=== PATIENT | female | born 1965 | race African-American/Black ===

== ENCOUNTER 2016-08-09 11:13 | Day surgery (SDC) | payer OTHER ==
[2016-08-02 14:19] VITALS: BMI 26.6
--- NOTE | 2016-08-03 08:59 | HP ---
Admitting History and Physical - Primary Care Physician PCP: Abundio Herrera - Admission Chief Complaint: Left breast cancer S/P chemotherapy History of Present Illness: 50 year old postmenapausal female S/P Left breast modified radical mastectomy with reconstrcution 10/2014 for invasive ductal carcinima and DCIS 2 positive nodes out of 12 She underwent chemotherapy with Herceptin and now is here for port removal History Source: Patient Limitations to Obtaining History: No Limitations - Past Medical History Cardiovascular: Yes: Hyperlipdemia ...LMP: 09/30/08 ...: No - Past Surgical History Past Surgical History: Yes: Hysterectomy (2008 due to vaginal bleeding fibroids) , Mastectomy (Left modified radical mastectomy with mainframe systems engineer/ implant and then tram reconstruction/ chemotherapy with herceptin and RT) - Smoking History Smoking history: Never smoked Have you smoked in the past 12 months: No Aproximately how many cigarettes per day: 0 - Alcohol/Substance Use Hx Alcohol Use: Yes (socially) Home Medications - Allergies Allergies/Adverse Reactions: Allergies Allergy/AdvReac Type Severity Reaction Status Date / Time beet Allergy Severe Difficulty Verified 07/16/16 15:50 Breathing oxycodone HCl [From Percocet] Allergy Severe Rash Verified 07/16/16 15:50 soy Allergy Severe Difficulty Verified 07/16/16 15:50 Breathing - Home Medications Home Medications: Ambulatory Orders Epinephrine (Epi-Pen 0.3MG) [Epipen 0.3MG -] 0.3 mg IM ASDIR #2 pens 06/19/15 Ranitidine HCl [Zantac] 150 mg PO DAILY #5 capsule 06/19/15 Tamoxifen Citrate 20 mg PO DAILY 04/01/16 Albuterol Sulfate Inhaler - [Ventolin HFA Inhaler -] 2 inh PO Q4H PRN #1 inh Family Disease History - Family Disease History Other Family History: pat aunt breast ca 50-60's Physical Examination Constitutional: Yes: Well Nourished, No Distress Breast(s): Yes: Other ( good results after left mastectomy and postradiation . Tram left side after complications from implant no evidence of recurrence left tram and right breast is negative some left arm lymphedema which is unchanged) Problem List - Problems (1) Breast cancer, left breast Code(s): C50.912 - MALIGNANT NEOPLASM OF UNSPECIFIED SITE OF LEFT FEMALE BREAST Qualifiers: Breast location: unspecified site of breast Patient gender: female Qualified Code(s): C50.912 - Malignant neoplasm of unspecified site of left female breast Assessment/Plan removal of life port
[2016-08-09] MEDS ORDERED: LACTATED RINGERS SOLUTION 1,000 ML IV SCH (13:15)
[2016-08-09] MEDS ORDERED: LIDOCAINE HCL 1%, 10 MG/ML (50 mL VIAL) IJ ONE (13:28)
[2016-08-09] MEDS ORDERED: ONDANSETRON 4 MG/2 ML VIAL IVPUSH PRN (13:50)
[2016-08-09] MEDS ORDERED: PROMETHAZINE HCL 25 MG/1 ML VIAL IVPUSH PRN (13:50)
[2016-08-09] MEDS ORDERED: KETOROLAC TROMETHAMINE 30 MG/1 ML VIAL IVPUSH PRN (14:07)
[2016-08-09] MEDS ORDERED: DEXTROSE 5%-0.45% SALINE 1,000 ML IV SCH (14:15)
[2016-08-09] MEDS ORDERED: ONDANSETRON 4 MG/2 ML VIAL IVPB PRN (14:23)
[2016-08-09 14:27] VITALS: TEMP 98.2
[2016-08-09 15:27] VITALS: BP 102/58; PULSE 82
--- NOTE | 2016-08-10 08:07 | OP ---
DATE OF OPERATION: 08/09/2016 PREOPERATIVE DIAGNOSIS: Left breast cancer, overlapping, status post left breast mastectomy. PROCEDURE: Right-sided subclavian vein, single-lumen Port-A-Cath removal. ANESTHESIA: Local with IV sedation. SURGEON: Zeinab Herrera MD [employer] SPECIAL AGENT: SOLANGE Akbar COMPLICATIONS: None. INDICATION: Briefly, the patient is a 50-year-old G4, P4, postmenopausal female from [place], who was diagnosed with a left breast cancer and underwent a left breast modified radical mastectomy back in October 2014 and had an financial assistance advisor placed. She had 2/12 positive nodes with extranodal extension, was HER2 positive, and underwent chemotherapy through Dr. Miguelina Ca with Herceptin for a full year. She had radiation over the financial assistance advisor and later had the financial assistance advisor exchanged for an implant in October 2015. 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 She now presents for removal of a right-sided subclavian vein Port-A-Cath. Informed consent was obtained, and site verification was made when she was in the holding area and brought in for surgery on August 09, 2016. DESCRIPTION OF PROCEDURE: She was brought into the operating room and laid on the OR table in the supine position. The right arm was kept at her side, and she was given some IV sedation. She did not receive any IV antibiotics given the small nature of the excision. The upper right chest wall was sterilely prepped and draped in the usual fashion. Lidocaine 1% was given directly over the Port-A-Cath site, and the previous incision was excised. Dissection was undertaken around the Port-A-Cath which was completely removed. It was sent to pathology as specimen. The capsule was also excised, and hemostasis was achieved using electrocautery. The wound was then closed using interrupted 2-0 plain suture. Then, the skin was closed using interrupted 3-0 deep dermal Vicryl suture and a running 4-0 subcuticular Biosyn suture. Mastisol and Steri-Strips were applied over the wound with a compressive dressing placed over this. The patient tolerated the procedure well, without difficulty, was awake and alert at the end of the procedure, and brought back to ambulatory surgery postoperatively she will be discharged home the same day once discharge criteria are met. All sponge and needle counts were correct at the end of the case, and estimated blood loss was minimal. ZEINAB HERRERA M.D. [id number]
--- NOTE | 2016-08-11 08:34 | PATH ---
Surgical Pathology Report Patient Name: PENNY LOVELACE Med. Rec. #: [id number] /Age/Gender: 1965 (Age: 50) / F Account: [id number] Location: [facility] Taken: 08/09/2016 Received: 08/09/2016 Reported: 08/11/2016 Physicians: Abundio Herrera M.D. Specimen(s) Received LIFE PORT Clinical History Breast cancer Final Diagnosis NETWORK MANAGER, REMOVAL: NETWORK MANAGER CONSISTENT WITH LIFE PORT (GROSS ONLY). Electronically Signed Scott Alejo M.D. Gross Description Received fresh, labeled "life port," is a 2.5 x 2.3 x 1.3 cm purple, triangular device, consistent with a life port. The specimen displays an 18 cm in length portion of tubing extending from one aspect. No soft tissue is present. No sections are submitted, gross only. /08/10/2016 saudi08/10/2016
== END 2016-08-09 15:29 | disposition home or self-care (01) ==
LOC: FASU 11:13
PROVIDERS: ATTEND Surgery Surgical Oncology
PROC: 0JPT0XZ Removal of Tunneled Vascular Access Device from Trunk Subcutaneous Tissue and Fascia, Open Approach (ICD-10-PCS; principal; 2016-08-09 13:28)
DX: C50.112 Malignant neoplasm of central portion of left female breast (principal); Z90.12 Acquired absence of left breast and nipple; E78.5 Hyperlipidemia, unspecified; Z90.710 Acquired absence of both cervix and uterus
CPT/HCPCS: 88300-TC

== ENCOUNTER 2016-10-30 21:51 | Emergency (ER) | payer OTHER ==
[2016-10-30 22:11] VITALS: BP 119/66; PULSE 86; TEMP 98.6; BMI 28.3
--- NOTE | 2016-10-30 22:34 | PDOC ---
History of Present Illness - General History Source: Patient Exam Limitations: No Limitations - History of Present Illness Initial Comments: 10/30/16 22:58 Patient is a 50 year old female with a significant past medical history of hyperlipidemia and left breast surgery who presents to the ED with abdominal cramps, nausea, vomiting and diarrhea. She reports multiple episodes of vomiting and diarrhea, non bloody, non bilious. Patient states that she ate roast pork from her neighbor and began to feel sick. <Daisy Hill - Last Filed: 10/30/16 22:58> <Megan Conway - Last Filed: 10/31/16 03:59> - General Chief Complaint: Diarrhea Stated Complaint: DIARRHEA Time Seen by Provider: 10/30/16 22:31 Past History <Daisy Hill - Last Filed: 10/30/16 22:58> - Past Medical History Anemia: No Asthma: Yes Cancer: Yes (BREAST-LEFT (CHEMO/RAD)) Cardiac Disorders: No CVA: No COPD: No CHF: No Dementia: No Diabetes: No GI Disorders: (DYSPHAGIA) Disorders: No HTN: No Hypercholesterolemia: Yes Liver Disease: No Seizures: No Thyroid Disease: No - Surgical History Abdominal Surgery: Yes Appendectomy: No Cardiac Surgery: No Cholecystectomy: Yes Lung Surgery: No Neurologic Surgery: No Orthopedic Surgery: No - Immunization History Immunization Up to Date: Yes - Psycho/Social/Smoking Cessation Hx Anxiety: No Suicidal Ideation: No Smoking History: Never smoked Have you smoked in the past 12 months: No Number of Cigarettes Smoked Daily: 0 Cigars Per Day: 0 Information on smoking cessation initiated: No Hx Alcohol Use: No Drug/Substance Use Hx: No Substance Use Type: None Hx Substance Use Treatment: No <Megan Conway - Last Filed: 10/31/16 03:59> - Past Medical History Allergies/Adverse Reactions: Allergies Allergy/AdvReac Type Severity Reaction Status Date / Time beet Allergy Severe Difficulty Verified 10/31/16 00:37 Breathing oxycodone HCl [From Percocet] Allergy Severe Rash Verified 10/31/16 00:37 soy Allergy Severe Difficulty Verified 10/31/16 00:37 Breathing Home Medications: Ambulatory Orders NK [No Known Home Medication] 10/31/16 Review of Systems - Review of Systems Able to Perform ROS?: Yes Comments:: 10/30/16 22:59 GENERAL/CONSTITUTIONAL: No fever or chills. No weakness. HEAD, EYES, EARS, NOSE AND THROAT: No change in vision. No ear pain or discharge. No sore throat. CARDIOVASCULAR: No chest pain or shortness of breath. RESPIRATORY: No cough, wheezing, or hemoptysis. GASTROINTESTINAL: +nausea, +vomiting, +diarrhea. No constipation. GENITOURINARY: No dysuria, frequency, or change in urination. MUSCULOSKELETAL: No joint or muscle swelling or pain. No neck or back pain. SKIN: No rash NEUROLOGIC: No headache, vertigo, loss of consciousness, or change in strength/ sensation. ENDOCRINE: No increased thirst. No abnormal weight change. HEMATOLOGIC/LYMPHATIC: No anemia, easy bleeding, or history of blood clots. ALLERGIC/IMMUNOLOGIC: No hives or skin allergy. <Daisy Hill - Last Filed: 10/30/16 22:58> *Physical Exam - Vital Signs Last Vital Signs Temp Pulse Resp BP Pulse Ox 98.6 F 86 20 119/66 99 10/30/16 22:07 10/30/16 22:07 10/30/16 22:07 10/30/16 22:07 10/30/16 22:07 - Physical Exam Comments: 10/30/16 23:00 GENERAL: Awake, alert, and fully oriented, in no acute distress HEAD: No signs of trauma EYES: PERRLA, EOMI, sclera anicteric, conjunctiva clear ENT: Auricles normal inspection, hearing grossly normal, nares patent, oropharynx clear without exudates. Moist mucosa NECK: Normal ROM, supple, no lymphadenopathy, JVD, or masses LUNGS: Breath sounds equal, clear to auscultation bilaterally. No wheezes, and no crackles HEART: Regular rate and rhythm, normal S1 and S2, no murmurs, rubs or gallops ABDOMEN: +mild diffuse abdominal tenderness. Soft, normoactive bowel sounds. No guarding, no rebound. No masses EXTREMITIES: Normal range of motion, no edema. No clubbing or cyanosis. No cords, erythema, or tenderness NEUROLOGICAL: Cranial nerves II through XII grossly intact. Normal speech, normal gait SKIN: Warm, Dry, normal turgor, no rashes or lesions noted. <Daisy Hill - Last Filed: 10/30/16 22:58> - Vital Signs Last Vital Signs Temp Pulse Resp BP Pulse Ox 98.6 F 86 20 119/66 99 10/30/16 22:07 10/30/16 22:07 10/30/16 22:07 10/30/16 22:07 10/30/16 22:07 <Megan Conway - Last Filed: 10/31/16 03:59> ED Treatment Course - LABORATORY CBC & Chemistry Diagram: 10/30/16 23:09 10/30/16 23:09 <Megan Conway - Last Filed: 10/31/16 03:59> Medical Decision Making - Medical Decision Making 10/30/16 23:30 Pt comes after vomiting and diarrhea s/p eating her neighbor's pernil. She has no fever or chills or other complaints. Exam is normal. SHe feels nauseous. We will hydrate and treat with pepcid and reglan and saline. Pt's CBC is normal. Chem pending. 10/31/16 03:58 Labs normal. Pt feeling slight imporvement; she still has crampy pain. She will be discharged home. Pepcid, gatorade, NSAIDS and tylenol. <Megan Conway - Last Filed: 10/31/16 03:59> *DC/Admit/Observation/Transfer - Attestations Scribe Attestion: 10/30/16 23:00 Documentation prepared by DIANNE Benz, acting as medical claims processor for Mgean Conway MD. <Daisy Hill - Last Filed: 10/30/16 22:58> - Discharge Dispostion Admit: No <Megan Conway - Last Filed: 10/31/16 03:59> Diagnosis at time of Disposition: Food poisoning - Discharge Dispostion Disposition: HOME Condition at time of disposition: Improved - Referrals Referrals: Oscar Banda MD [Primary Care Provider] - - Patient Instructions Printed Discharge Instructions: DI for Food Poisoning
[2016-10-30] MEDS ORDERED: SODIUM CHLORIDE 0.9% 500 ML INFUS.BAG IV ONE (22:57)
[2016-10-30] MEDS ORDERED: METOCLOPRAMIDE HCL INJECTION 10 MG/2 ML VIAL IVPB ONE (22:57)
[2016-10-30] MEDS ORDERED: FAMOTIDINE 20 MG/50 ML IVPB 50 ML IVPB ONE ×2 (22:58)
[2016-10-30] MEDS ORDERED: METOCLOPRAMIDE HCL INJECTION 10 MG/2 ML VIAL ONE (22:58)
[2016-10-30 23:15] LABS: BASOPHIL 0.4 % (0-2.0); EOSINOPHIL 2.3 % (0-4.5); MCH 30.2 pg (25.7-33.7); MCHC 33.6 g/dl (32.0-36.0); MEAN CELL VOLUME 89.7 fl (80-96); MEAN PLT VOLUME 9.5 fl (7.5-11.1); NEUTROPHILS 66.1 % (42.8-82.8); PLATELET COUNT 236 K/MM3 (134-434); RDW 14.1 % (11.6-15.6); WHITE BLOOD COUNT 4.1 K/mm3 (4.0-10.0)
[2016-10-30 23:42] LABS: ALBUMIN 3.3 g/dl (3.4-5.0); ALK PHOS 63 U/L (45-117); AMYLASE 72 U/L (25-115); ANION GAP 10 (8-16); BILIRUBIN,TOTAL 0.7 mg/dL (0.2-1.0); CALCIUM 8.8 mg/dL (8.5-10.1); CO2 28 mmol/L (21-32); COCKROFT - GAULT 114.4355; CREATININE 0.7 mg/dL (0.55-1.02); GLUCOSE,RANDOM 89 mg/dL (74-106); SGOT/AST 20 U/L (15-37); SGPT/ALT 21 U/L (12-78); TOT PROT 6.4 g/dl (6.4-8.2)
== END 2016-10-31 00:38 | disposition home or self-care (01) ==
LOC: JER 21:51
PROC: 3E033GC Introduction of Other Therapeutic Substance into Peripheral Vein, Percutaneous Approach (ICD-10-PCS; principal; 2016-10-30)
DX: T62.8X1A Toxic effect of other specified noxious substances eaten as food, accidental (unintentional), initial encounter (principal); Y92.098 Other place in other non-institutional residence as the place of occurrence of the external cause; Z85.3 Personal history of malignant neoplasm of breast
CPT/HCPCS: 36415; 80053; 82150; 83690; 85025; 96365; 96375; 99282-25

== ENCOUNTER 2017-04-24 22:07 | Emergency (ER) | payer OTHER ==
[2017-04-24 22:21] VITALS: BP 137/77; PULSE 71; TEMP 98.5; BMI 27.1
--- NOTE | 2017-04-24 22:31 | PDOC ---
History of Present Illness - General Chief Complaint: Rash Stated Complaint: RASH Time Seen by Provider: 04/24/17 22:21 History Source: Patient - History of Present Illness Timing/Duration: reports: other (last night) Location: reports: extremities Respiratory Risk Factors: reports: insect bite Past History - Past Medical History Allergies/Adverse Reactions: Allergies Allergy/AdvReac Type Severity Reaction Status Date / Time beet Allergy Severe Difficulty Verified 04/24/17 22:20 Breathing oxycodone HCl [From Percocet] Allergy Severe Rash Verified 04/24/17 22:20 soy Allergy Severe Difficulty Verified 04/24/17 22:20 Breathing Home Medications: Ambulatory Orders NK [No Known Home Medication] 10/31/16 Anemia: No Asthma: Yes Cancer: Yes (BREAST-LEFT (CHEMO/RAD)) Cardiac Disorders: No CVA: No COPD: No CHF: No Dementia: No Diabetes: No GI Disorders: (DYSPHAGIA) Disorders: No HTN: No Hypercholesterolemia: Yes Liver Disease: No Seizures: No Thyroid Disease: No Other medical history: LT arm lymphedema - Surgical History Abdominal Surgery: Yes Appendectomy: No Cardiac Surgery: No Cholecystectomy: Yes Lung Surgery: No Neurologic Surgery: No Orthopedic Surgery: No - Immunization History Immunization Up to Date: Yes - Suicide/Smoking/Psychosocial Hx Smoking History: Never smoked Have you smoked in the past 12 months: No Number of Cigarettes Smoked Daily: 0 Cigars Per Day: 0 Information on smoking cessation initiated: No Hx Alcohol Use: No Drug/Substance Use Hx: No Substance Use Type: None Hx Substance Use Treatment: No Review of Systems - Review of Systems Constitutional: No: Chills, Fever Integumentary: Yes: Pruritus, Rash *Physical Exam - Vital Signs Last Vital Signs Temp Pulse Resp BP Pulse Ox 98.5 F 71 18 137/77 100 04/24/17 22:15 04/24/17 22:15 04/24/17 22:15 04/24/17 22:15 04/24/17 22:15 - Physical Exam General Appearance: Yes: Appropriately Dressed. No: Apparent Distress HEENT: positive: Normal Voice Neck: positive: Supple Respiratory/Chest: negative: Respiratory Distress Integumentary: positive: Dry, Warm, Hives (2 papular erythemous lesions c/w hives to LUE) Medical Decision Making - Medical Decision Making 04/24/17 22:27 51 yo F, no sig hx, here for possible insect bite to LUE. Pt noticed pruritic rash to LUE shortly after lying down in the bed at her cousin's home last night. Is concerned for bedbugs. No f/c See exam Hives to LUE Possible 2/2 insect bite, no e/o infection Dc w/ benadryl as needed for itching 04/24/17 22:28 04/24/17 22:31 *DC/Admit/Observation/Transfer Diagnosis at time of Disposition: Hives - Discharge Dispostion Disposition: HOME Condition at time of disposition: Good - Patient Instructions Printed Discharge Instructions: Hives Additional Instructions: It is possible that you were bitten by an insect. Take benadryl for itching while home. If you have to go out, take zyrtec or claritin
== END 2017-04-24 22:31 | disposition home or self-care (01) ==
LOC: JERFT 22:07 → SUPCPDRO 22:07 → JERFT 22:31
DX: L50.9 Urticaria, unspecified (principal)
CPT/HCPCS: 99281-25

== ENCOUNTER 2019-04-05 12:39 | Emergency (ER) | payer OTHER ==
--- NOTE | 2019-04-05 12:52 | PDOC ---
Rapid Medical Evaluation Medical Evaluation: Allergies Allergy/AdvReac Type Severity Reaction Status Date / Time beet Allergy Severe Difficulty Verified 09/30/17 02:45 Breathing oxycodone HCl [From Percocet] Allergy Severe Rash Verified 09/30/17 02:45 soy Allergy Severe Difficulty Verified 09/30/17 02:45 Breathing I have performed a brief in-person evaluation of this patient. The patient presents with a chief complaint of: hx HLD, Breast CA s/p mastectomy and chemotherapy presents with pain along L side of neck/L shoulder from today; had cortisone injection done 03/28 to L shoulder for rotator cuff tear but states was not bothering her until today; denies sob, cp Pertinent physical exam findings: +mild TTP along L SCM, pain with movement of L shoulder, no c-spine tenderness I have ordered the following: Labs, motrin The patient will proceed to the ED for further evaluation. 04/05/19 12:48
[2019-04-05 12:53] VITALS: BMI 27.8
[2019-04-05] MEDS ORDERED: IBUPROFEN 600 MG TABLET (FP) PO ONE (12:53)
[2019-04-05] MEDS ORDERED: KETOROLAC TROMETHAMINE 60 MG/2 ML VIAL IM ONE (13:53)
[2019-04-05] MEDS ORDERED: LIDOCAINE 5% TOPICAL PATCH TP ONE (13:53)
[2019-04-05] MEDS ORDERED: KETOROLAC TROMETHAMINE 60 MG/2 ML VIAL ONE ×2 (14:34→16:01)
[2019-04-05] MEDS ORDERED: LIDOCAINE 5% TOPICAL PATCH ONE ×2 (14:34→16:01)
[2019-04-05 15:49] LABS: BASO % 0.1 % (0-2.0); EOS % 0.1 % (0-4.5); HEMATOCRIT 40.4 % (32.4-45.2); HEMOGLOBIN 13.1 GM/dL (10.7-15.3); LYMPH % 5.8 % (8-40); MCH 29.8 pg (25.7-33.7); MCHC 32.4 g/dl (32.0-36.0); MEAN CELL VOLUME 92.1 fl (80-96); MEAN PLT VOLUME 9.3 fl (7.5-11.1); MONO % 4.7 % (3.8-10.2); NEUT % 89.3 % (42.8-82.8); PLATELET COUNT 133 K/MM3 (134-434); RBC 4.38 M/mm3 (3.60-5.2); RDW 14.6 % (11.6-15.6); WHITE BLOOD COUNT 9.5 K/mm3 (4.0-10.0)
--- NOTE | 2019-04-05 16:01 | PDOC ---
History of Present Illness - General Chief Complaint: Pain, Acute Stated Complaint: EDEMA Time Seen by Provider: 04/05/19 12:47 History Source: Patient Exam Limitations: No Limitations Past History - Travel Traveled outside of the country in the last 30 days: No Close contact w/someone who was outside of country & ill: No - Past Medical History Allergies/Adverse Reactions: Allergies Allergy/AdvReac Type Severity Reaction Status Date / Time beet Allergy Severe Difficulty Verified 04/05/19 12:49 Breathing oxycodone HCl [From Percocet] Allergy Severe Rash Verified 04/05/19 12:49 soy Allergy Severe Difficulty Verified 04/05/19 12:49 Breathing Home Medications: Ambulatory Orders Cyclobenzaprine HCl [Flexeril -] 10 mg PO HS #10 tablet 04/05/19 Ibuprofen 800 mg PO TID #30 tablet 04/05/19 Anemia: No Asthma: Yes Cancer: Yes (BREAST-LEFT (CHEMO/RAD)) Cardiac Disorders: No CVA: No COPD: No CHF: No Dementia: No Diabetes: No GI Disorders: (DYSPHAGIA) Disorders: No HTN: No Hypercholesterolemia: Yes Liver Disease: No Seizures: No Thyroid Disease: No - Surgical History Abdominal Surgery: Yes Appendectomy: No Cardiac Surgery: No Cholecystectomy: Yes Lung Surgery: No Neurologic Surgery: No Orthopedic Surgery: No - Immunization History Immunization Up to Date: Yes - Psycho Social/Smoking Cessation Hx Smoking History: Never smoked Have you smoked in the past 12 months: No Number of Cigarettes Smoked Daily: 0 Cigars Per Day: 0 Information on smoking cessation initiated: No Hx Alcohol Use: No Drug/Substance Use Hx: No Substance Use Type: None Hx Substance Use Treatment: No Review of Systems - Review of Systems Able to Perform ROS?: Yes Comments:: 04/05/19 18:44 CONSTITUTIONAL: Absent: fever, chills, diaphoresis, generalized weakness, malaise, loss of appetite HEENT: Absent: rhinorrhea, nasal congestion, throat pain, throat swelling, difficulty swallowing, mouth swelling, ear pain, eye pain, visual Changes CARDIOVASCULAR: Absent: chest pain, loss of consciousness, palpitations, irregular heart rate, peripheral edema RESPIRATORY: Absent: cough, shortness of breath, dyspnea with exertion, orthopnea, wheezing, stridor, hemoptysis GASTROINTESTINAL: Absent: abdominal pain, abdominal distension, nausea, vomiting, diarrhea, constipation, melena, hematochezia GENITOURINARY: Absent: dysuria, frequency, urgency, hesitancy, hematuria, flank pain, genital pain MUSCULOSKELETAL: Present: L shoulder pain Absent: myalgia, joint swelling SKIN: Absent: rash, itching, pallor HEMATOLOGIC/IMMUNOLOGIC: Absent: easy bleeding, easy bruising, lymphadenopathy, frequent infections ENDOCRINE: Absent: unexplained weight gain, unexplained weight loss, heat intolerance, cold intolerance NEUROLOGIC: Absent: headache, focal weakness or paresthesias, dizziness, unsteady gait, seizure, mental status changes, bladder or bowel incontinence PSYCHIATRIC: Absent: anxiety, depression, suicidal or homicidal ideation, hallucinations. Is the patient limited [place] proficient: No *Physical Exam - Vital Signs Last Vital Signs Temp Pulse Resp BP Pulse Ox 100.3 F H 94 H 16 129/78 100 04/05/19 12:49 04/05/19 12:49 04/05/19 12:49 04/05/19 12:49 04/05/19 12:49 - Physical Exam Comments: 04/05/19 16:45 GENERAL: Well developed, well nourished. Awake and alert. No acute distress. HEENT: Normocephalic, atraumatic. PERRLA, EOMI. No conjunctival pallor. Sclera are non- icteric. Moist mucous membranes. Oropharynx is clear. NECK: Supple. Full ROM. No JVD. Carotid pulses 2+ and symmetric, without bruits. No thyromegaly. No lymphadenopathy. CARDIOVASCULAR: Regular rate and rhythm. No murmurs, rubs, or gallops. Distal pulses are 2+ and symmetric. PULMONARY: No evidence of respiratory distress. Lungs clear to auscultation bilaterally. No wheezing, rales or rhonchi. ABDOMINAL: Soft. Non-tender. Non-distended. No rebound or guarding. No organomegaly. Normoactive bowel sounds. MUSCULOSKELETAL Guarding of the L shoulder. Unwilling to move shoulder to perform exam d/t pain. TTP of the L trapezius with palpable spasm. Normal range of motion at all other joints. No bony deformities or tenderness. No CVA tenderness. EXTREMITIES: Swelling to the L hand noted. No cyanosis. No clubbing. No calf tenderness. SKIN: Warm and dry. Normal capillary refill. No rashes. No jaundice. NEUROLOGICAL: Alert, awake, appropriate. Cranial nerves 2-12 intact. No deficits to light touch and temperature in face, upper extremities and lower extremities. No motor deficits in the in face, upper extremities and lower extremities. Normoreflexic in the upper and lower extremities. Normal speech. Toes are down- going bilaterally. Gait is normal without ataxia. PSYCHIATRIC: Cooperative. Good eye contact. Appropriate mood and affect. ED Treatment Course - LABORATORY CBC & Chemistry Diagram: 04/05/19 15:20 04/05/19 15:20 - ADDITIONAL ORDERS Additional order review: 04/05/19 15:20 RBC 4.38 MCV 92.1 MCHC 32.4 RDW 14.6 MPV 9.3 Neutrophils % 89.3 H D Lymphocytes % 5.8 L D Monocytes % 4.7 Eosinophils % 0.1 D Basophils % 0.1 - RADIOLOGY Radiology Studies Ordered: Category Date Time Status SHOULDER-LEFT [RAD] Stat Radiology 04/05/19 13:54 Completed SPINE-CERVICAL [RAD] Stat Radiology 04/05/19 13:54 Completed - Medications Given in the ED: ED Medications Discontinued Medications Generic Name Dose Route Start Last Admin Trade Name Miranda PRN Reason Stop Dose Admin Ibuprofen 600 mg 04/05/19 12:53 04/05/19 15:59 Motrin - PO 04/05/19 12:54 Not Given ONCE ONE Medical Decision Making - Medical Decision Making 04/05/19 17:52 The patient is a 53-year-old female with past medical history of breast cancer, in remission, neck pain/herniated disks, presents to the ER today for left shoulder pain. She states that her pain started approximately 1 week ago after receiving a cortisone injection in her neck. She states that she cannot move her left shoulder today. She denies any trauma or aggravating factors. Denies numbness, tingling and weakness to the affected extremity. Patient is right- hand dominant. A/P: Shoulder pain Guarding of the L shoulder. Unwilling to move shoulder to perform exam d/t pain. TTP of the L trapezius with palpable spasm. L hand swelling typical for patient as she has residual lymphadenopathy status post L lymphnode removal for breast cancer. Sling applied, patient sent for x-rays. Left shoulder x-ray with no acute pathology. Cervical spine x-ray shows straightening consistent with spasm Toradol given with relief of symptoms. Discharge home with pain control and orthopedic follow-up I discussed the physical exam findings, ancillary test results and final diagnoses with the patient. I answered all of the patient's questions. The patient was satisfied with the care received and felt comfortable with the discharge plan and treatment plan. The Patient agrees to follow up with the primary care physician/specialist within 24-72 hours. Return precautions were given. *DC/Admit/Observation/Transfer Diagnosis at time of Disposition: Shoulder pain Qualifiers: Chronicity: acute Laterality: left Qualified Code(s): M25.512 - Pain in left shoulder - Discharge Dispostion Disposition: HOME Condition at time of disposition: Stable Decision to Admit order: No - Prescriptions Prescriptions: Cyclobenzaprine HCl [Flexeril -] 10 mg PO HS #10 tablet Ibuprofen 800 mg PO TID #30 tablet - Referrals Referrals: Oscar Banda MD [Primary Care Provider] - - Patient Instructions Printed Discharge Instructions: DI for Shoulder Pain Additional Instructions: Your x-ray of your shoulder and neck show a muscles spasm Take Motrin 800mg every 6 hours starting tonight before bed. You may take the Flexeril at night before bed. Do not drink or drive after taking the medication as it may make you drowsy Apply warm compresses to the area Please follow up with orthopedics this week. Return to the ER for worsening pain, fever, numbness down the extremity or if you have any changes in your symptoms - Post Discharge Activity Discharge - Discharge Information Problems reviewed: Yes Clinical Impression/Diagnosis: Shoulder pain Qualifiers: Chronicity: acute Laterality: left Qualified Code(s): M25.512 - Pain in left shoulder Condition: Stable Disposition: HOME - Additional Discharge Information Prescriptions: Cyclobenzaprine HCl [Flexeril -] 10 mg PO HS #10 tablet Ibuprofen 800 mg PO TID #30 tablet - Follow up/Referral Referrals: Oscar Banda MD [Primary Care Provider] - - Patient Discharge Instructions Patient Printed Discharge Instructions: DI for Shoulder Pain Additional Instructions: Your x-ray of your shoulder and neck show a muscles spasm Take Motrin 800mg every 6 hours starting tonight before bed. You may take the Flexeril at night before bed. Do not drink or drive after taking the medication as it may make you drowsy Apply warm compresses to the area Please follow up with orthopedics this week. Return to the ER for worsening pain, fever, numbness down the extremity or if you have any changes in your symptoms - Post Discharge Activity
[2019-04-05 16:11] LABS: ALBUMIN 3.8 g/dl (3.4-5.0); BILIRUBIN,TOTAL 0.8 mg/dL (0.2-1); BLOOD UREA NITROGEN 15.5 mg/dL (7-18); CALCIUM 9.4 mg/dL (8.5-10.1); POTASSIUM 4.1 mmol/L (3.5-5.1); TOT PROT 7.1 g/dl (6.4-8.2)
[2019-04-05] MEDS ORDERED: CYCLOBENZAPRINE HCL 10 MG TABLET (FP) PO ONE (16:18)
[2019-04-05] MEDS ORDERED: CYCLOBENZAPRINE HCL 10 MG TABLET (FP) ONE (16:54)
[2019-04-05 17:04] VITALS: BP 130/76; PULSE 86; TEMP 98
== END 2019-04-05 17:04 | disposition home or self-care (01) ==
LOC: JER 12:39
PROC: 3E0233Z Introduction of Anti-inflammatory into Muscle, Percutaneous Approach (ICD-10-PCS; principal; 2019-04-05)
DX: M62.838 Other muscle spasm (principal); Z85.3 Personal history of malignant neoplasm of breast; Z90.12 Acquired absence of left breast and nipple; E78.00 Pure hypercholesterolemia, unspecified; Z88.5 Allergy status to narcotic agent; Z91.018 Allergy to other foods
CPT/HCPCS: 36415; 72050-TC-FY; 73030-TC-LT-FY; 80053; 85025; 99281-25

== ENCOUNTER 2019-09-03 15:27 | Emergency (ER) | payer OTHER ==
--- NOTE | 2019-09-03 16:15 | PDOC ---
Attending Attestation - Resident Resident Name: Libra Waddell - ED Attending Attestation I have performed the following: I have examined & evaluated the patient, The case was reviewed & discussed with the resident, I agree w/resident's findings & plan, Exceptions are as noted - HPI HPI: 53 yo F history HL, invasive ductal carcinoma of L breast (mastectomy 2014) s/p chemo, fibroids s/p hysterectomy, asthma presents for fever, body aches, chest tightness, sore throat for 2 days. Denies N/V/D. +Chest tightness, not improving with inhaler. - Physicial Exam PE: GENERAL: Awake, alert, and fully oriented, in no acute distress. Appears ill but nontoxic. HEAD: No signs of trauma EYES: PERRLA, EOMI, sclera anicteric, conjunctiva clear ENT: Auricles normal inspection, hearing grossly normal, nares patent, oropharynx clear without exudates. Moist mucosa NECK: Normal ROM, supple, no lymphadenopathy, JVD, or masses LUNGS: Dec air entry B/L, no wheezes. Able to speak full sentences HEART: Regular rate and rhythm, normal S1 and S2, no murmurs, rubs or gallops ABDOMEN: Soft, nontender, normoactive bowel sounds. No guarding, no rebound. No masses EXTREMITIES: Normal range of motion, no edema. No clubbing or cyanosis. No cords, erythema, or tenderness NEUROLOGICAL: Cranial nerves II through XII grossly intact. Normal speech, normal gait. Motor and sensation intact SKIN: Warm, dry, normal turgor, no rashes or lesions noted. - Medical Decision Making Pt positive for influenza on swab. Improved with neb treatments. Stable for DC home.
[2019-09-03] MEDS ORDERED: ALBUTEROL SO4 2.5/IPRATROPIUM 0.5 INH SOL 3 ML VIAL.NEB. NEB ONE ×2 (16:16→16:54)
--- NOTE | 2019-09-03 16:20 | PDOC ---
History of Present Illness - General Stated Complaint: DIFFICULTY BREATHING Time Seen by Provider: 09/03/19 16:02 History Source: Patient, Old Records Exam Limitations: No Limitations - History of Present Illness Initial Comments: 53 year old female with PMH HLD, invasive ductal carcinoma of the left breast s/ p mastectomy (2014) + chemo, uterine fibroids s/p hysterectomy, asthma (never intubated, hospitalized last 2014, uses rescue inhaler, no nebulizer at home) presented to ED for fever, body aches, chest tightness, sore throat since yesterday. Pt denied sick contacts, nausea, vomiting, diarrhea, abdominal pain, rash. Pt reported she has felt more short of breath and felt as if her chest is tight like prior asthma exacerbations. She reported she tried her rescue inhaler without improvement of symptoms. She denied hormone use, control use, active malignancy in 6 months, surgery <4 weeks, hx DVT/PE, hemoptysis, lower extremity swelling. Pt reported she last took Tylenol 1000 mg around 0800 AM today. ROS General: admitted to fever, chills, generalized weakness, body aches. HEENT: admited to sore throat. denied rhinorrhea, ear pain. Cardiovascular: admitted to chest pain. denied palpitations, syncope, diaphoresis. Respiratory: admitted to shortness of breath, cough. denied sputum production, hemoptysis. Gastrointestinal: denied abdominal pain, nausea, vomiting, diarrhea, constipation, blood in stool. Genitourinary: denied dysuria, increased urinary frequency, hematuria, urinary incontinence, flank pain. Back: denied back pain. Musculoskeletal: denied joint pain, muscle pain, joint swelling. Neurological: admitted to headache. denied dizziness, numbness, tingling, weakness. Integumentary: denied rash, laceration, abrasion. Hematologic/Lymphatic: denied bruising or bleeding. PE Constitutional: Well-nourished, Well-developed, appearing stated age. HEENT: head is normocephalic, atraumatic. EOMI. PERRLA. no posterior pharyngeal erythema. no tonsillar swelling or exudates bilaterally. uvula midline. no peritonsillar swelling. no jaw tenderness or misalignment. Neck: supple. Full ROM. Cardiovascular: regular heart rhythm. Normal S1 and S2. no murmurs. no pericardial friction rub. Respiratory: clear to auscultation bilaterally. no crackles, rhonchi or wheezing. no stridor. mild labored breathing. speaking full sentences. Gastrointestinal: soft, flat, nontender. normal bowel sounds. no rebound, guarding, or masses. Extremities: peripheral pulses intact and equal. no lower extremity edema noted. no calf tenderness bilaterally. Neurological: CN 2-12 grossly intact. moves all four extremities. Psych: awake, alert, oriented x3. follows commands. answers questions appropriately. Past History - Past Medical History Allergies/Adverse Reactions: Allergies Allergy/AdvReac Type Severity Reaction Status Date / Time beet Allergy Severe Difficulty Verified 04/05/19 12:49 Breathing oxycodone HCl [From Percocet] Allergy Severe Rash Verified 04/05/19 12:49 soy Allergy Severe Difficulty Verified 04/05/19 12:49 Breathing Home Medications: Ambulatory Orders Cyclobenzaprine HCl [Flexeril -] 10 mg PO HS #10 tablet 04/05/19 Ibuprofen 800 mg PO TID #30 tablet 04/05/19 Albuterol 0.083% Nebulizer Erica [Ventolin 0.083% Nebulizer Soln -] 1 neb NEB Q4H PRN #30 vial 09/03/19 Nebulizer Accessories [Adult Aerosol Mask] 1 each MC QID PRN #1 each 09/03/19 Nebulizer [Compact Compressor Nebulizer] 1 each MC QID PRN #1 each 09/03/19 Ondansetron [Zofran Odt -] 4 mg SL TID PRN #9 od.tablet 09/03/19 Oseltamivir Phosphate [Tamiflu] 75 mg PO BID #9 capsule 09/03/19 - Immunization History Immunization Up to Date: Yes - Psycho Social/Smoking Cessation Hx Smoking History: Never smoked Have you smoked in the past 12 months: No Number of Cigarettes Smoked Daily: 0 Cigars Per Day: 0 Hx Alcohol Use: No Drug/Substance Use Hx: No Substance Use Type: None Hx Substance Use Treatment: No ED Treatment Course - LABORATORY CBC & Chemistry Diagram: 09/03/19 17:15 09/03/19 17:15 - RADIOLOGY Radiology Studies Ordered: Category Date Time Status CHEST PA & LAT [RAD] Stat Radiology 09/03/19 16:15 Ordered Medical Decision Making - Medical Decision Making 53 year old female with above PMH presented to ED for cough, body aches, sore throat, fever, chest tightness since yesterday. Initial Vital Signs Temp Pulse Resp BP Pulse Ox 99.7 F H 104 H 22 H 123/55 L 100 09/03/19 17:32 18 17:32 09/03/19 17:32 09/03/19 17:32 09/03/19 17:32 Afebrile. Tachycardic. Tachypneic. Mild diastolic hypotension. No hypoxia on room air. Labs ordered: CBC, CMP, coags, cardiac profile, influenza Imaging ordered: CXR Medications ordered: duoneb, tylenol 975 mg PO once, normal saline bolus 1000 cc once EKG performed at 1643: rate 93, regular rhythm, normal axis, normal intervals, no acute ST changes, QTc 437. 09/03/19 17:03 Laboratory Last Values Influenza A (Rapid) Positive (Negative) A 09/03/19 16:22 Influenza B (Rapid) Negative (Negative) 09/03/19 16:22 Pt positive for influenza, will continue to symptomatically treat. 09/03/19 17:39 Discussed results with patient, discussed risks/benefits of Tamiflu, pt requesting Tamiflu treatment. Will give first dose here and prescribe to pharmacy. 09/03/19 17:50 Pt reported improvement of chest tightness/SOB with duoneb treatment. 09/03/19 18:26 CBC WBC 5.3 K/mm3 (4.0-10.0) 09/03/19 17:15 RBC 4.27 M/mm3 (3.60-5.2) 09/03/19 17:15 Hgb 12.9 GM/dL (10.7-15.3) 09/03/19 17:15 Hct 38.5 % (32.4-45.2) 09/03/19 17:15 MCV 90.1 fl (80-96) 09/03/19 17:15 MCH 30.1 pg (25.7-33.7) 09/03/19 17:15 MCHC 33.5 g/dl (32.0-36.0) 09/03/19 17:15 RDW 14.3 % (11.6-15.6) 09/03/19 17:15 Plt Count 191 K/MM3 (134-434) D 09/03/19 17:15 MPV 9.2 fl (7.5-11.1) 09/03/19 17:15 Absolute Neuts (auto) 4.0 K/mm3 (1.5-8.0) 09/03/19 17:15 Neutrophils % 76.7 % (42.8-82.8) 09/03/19 17:15 Lymphocytes % 9.6 % (8-40) D 09/03/19 17:15 Monocytes % 12.8 % (3.8-10.2) H D 09/03/19 17:15 Eosinophils % 0.4 % (0-4.5) D 09/03/19 17:15 Basophils % 0.5 % (0-2.0) D 09/03/19 17:15 Nucleated RBC % 0 % (0-0) 09/03/19 17:15 No leukocytosis. No anemia. No left shift. 09/03/19 18:33 CMP Sodium 136 mmol/L (136-145) 09/03/19 17:15 Potassium 4.4 mmol/L (3.5-5.1) 09/03/19 17:15 Chloride 101 mmol/L (98-107) 09/03/19 17:15 Carbon Dioxide 27 mmol/L (21-32) 09/03/19 17:15 Anion Gap 8 MMOL/L (8-16) 09/03/19 17:15 BUN 12.7 mg/dL (7-18) 09/03/19 17:15 Creatinine 0.9 mg/dL (0.55-1.3) 09/03/19 17:15 Est GFR (CKD-EPI)AfAm 83.43 09/03/19 17:15 Est GFR (CKD-EPI)NonAf 71.98 09/03/19 17:15 Random Glucose 121 mg/dL (74-106) H 09/03/19 17:15 Calcium 9.2 mg/dL (8.5-10.1) 09/03/19 17:15 Total Bilirubin 0.5 mg/dL (0.2-1) 09/03/19 17:15 AST 35 U/L (15-37) 09/03/19 17:15 ALT 21 U/L (13-61) 09/03/19 17:15 Alkaline Phosphatase 82 U/L (45-117) 09/03/19 17:15 Creatine Kinase 131 U/L (26-192) 09/03/19 17:15 Troponin I < 0.02 ng/ml (0.00-0.05) 09/03/19 17:15 Total Protein 7.3 g/dl (6.4-8.2) 09/03/19 17:15 Albumin 3.8 g/dl (3.4-5.0) 09/03/19 17:15 No electrolyte abnormalities. No BETO. No transaminitis. Cardiac enzymes within normal limits. CXR report: Name: [facility] DEPARTMENT OF RADIOLOGY Phys: Libra Waddell RESIDENT : [id number] Age: 53 Sex: F [facility] Acct: [id number] Loc: [address] Exam Date: 09/03/19 Status: [place] [id number] Unit Number: [id number] EXAM#: TYPE/EXAM: RESULT: [id number] RAD/CHEST PA LAT Chest: Cough. Fever. History of breast CA 2 views of the chest have been submitted. There is a normal heart, unfolded aorta and slightly prominent right hilum. There are some coarse lung changes but no sign of infiltrate or failure. The angles are sharp. The soft tissues are intact. There are no significant degenerative changes. Correlation recommended Impression : No sign of infiltrate or failure. Slight coarsening of lung markings. Correlation recommended Reported By: Rob Alvarado MD 09/03/19 [id number] Pt reported improvement of symptoms, requesting discharge, reported she is hungry, given lunch bag. Pt advised to take Alissa flu prescribed to her, Tylenol/Motrin OTC, zofran PRN if needed, and increase PO fluid intake. Pt advised to practice good hand hygeine and refrain from contact with others as to not spread the infection. Pt provided with work note. Pt given prescription for albuterol solution, nebulizer, nebulizer mask for mild asthma exacerbation. Pt advised to F/U with PCP promptly and given return precautions. Pt expressed understanding and agreed with plan for care. Discharge - Discharge Information Problems reviewed: Yes Clinical Impression/Diagnosis: Influenza Condition: Improved Disposition: HOME - Admission No - Additional Discharge Information Prescriptions: Albuterol 0.083% Nebulizer Erica [Ventolin 0.083% Nebulizer Soln -] 1 neb NEB Q4H PRN #30 vial PRN Reason: Asthma Nebulizer [Compact Compressor Nebulizer] 1 each MC QID PRN #1 each PRN Reason: Asthma Nebulizer Accessories [Adult Aerosol Mask] 1 each MC QID PRN #1 each PRN Reason: Asthma Ondansetron [Zofran Odt -] 4 mg SL TID PRN #9 od.tablet PRN Reason: Nausea Oseltamivir Phosphate [Tamiflu] 75 mg PO BID #9 capsule - Follow up/Referral Referrals: Oscar Banda MD [Primary Care Provider] - - Patient Discharge Instructions Patient Printed Discharge Instructions: DI for Influenza -- Adult Additional Instructions: You have Influenza A - you are infective while you have a fever, so please do your best to wash your hands and isolate yourself from others as to not spread the infection to others. -The flu is a virus, and can be treated by Tamiflu, an anti-viral medication. I have sent this to your pharmacy. Take as advised on label. -Sometimes the flu can cause nausea/vomiting, if this occurs I have sent a prescription to your pharmacy for Zofran tabs that dissolve under your tongue. Fill only if needed and take only if needed. Follow instructions on label. -I have sent a prescription to your pharmacy for albuterol nebulized solution and a nebulizer machine. Use every 4-6 hours as needed. -Take Tylenol 1000 mg every 8 hours for fever/body aches. Buy over the counter. -Take Motrin 600 mg every 6-8 hours for fever/body aches. Buy over the counter. Tylenol and Motrin are not the same medication and can be used safely together. -Increase your fluid intake (gatorade/pedialyte) to help with dehydration that the flu will cause. Follow up with your primary care doctor within 3 days regarding your Emergency Department visit. Your care is not complete until you follow up. Return to the Emergency Department for increasing pain, increasing rash, intractable vomiting, fever>103F, fever>5 days, dizziness, weakness, chest pain , shortness of breath, numbness, tingling, seizure or any other new, worsening or concerning symptoms. - Post Discharge Activity Work/Back to School Note: Back to Work
[2019-09-03] MEDS ORDERED: SODIUM CHLORIDE 1,000 ML IV STA (16:28)
[2019-09-03] MEDS ORDERED: ACETAMINOPHEN 325 MG TABLET (FP) PO ONE (16:28)
[2019-09-03] MEDS ORDERED: ACETAMINOPHEN 325 MG TABLET (FP) ONE (16:55)
[2019-09-03] MEDS ORDERED: OSELTAMIVIR PHOSPHATE 75 MG CAPSULE PO ONE (17:39)
[2019-09-03 17:42] VITALS: BP 123/55; PULSE 104; TEMP 99.7; BMI 26.6
[2019-09-03] MEDS ORDERED: OSELTAMIVIR PHOSPHATE 75 MG CAPSULE ONE (17:45)
[2019-09-03 17:57] LABS: BASO % 0.5 % (0-2.0); EOS % 0.4 % (0-4.5); HEMATOCRIT 38.5 % (32.4-45.2); HEMOGLOBIN 12.9 GM/dL (10.7-15.3); LYMPH % 9.6 % (8-40); MCH 30.1 pg (25.7-33.7); MCHC 33.5 g/dl (32.0-36.0); MEAN CELL VOLUME 90.1 fl (80-96); MEAN PLT VOLUME 9.2 fl (7.5-11.1); MONO % 12.8 % (3.8-10.2); NEUT % 76.7 % (42.8-82.8); PLATELET COUNT 191 K/MM3 (134-434); RBC 4.27 M/mm3 (3.60-5.2); RDW 14.3 % (11.6-15.6); WHITE BLOOD COUNT 5.3 K/mm3 (4.0-10.0)
[2019-09-03 18:10] LABS: INR 1.01 (0.83-1.09); PROTHROMBIN TIME (PATIENT) 11.9 SEC (9.7-13.0)
[2019-09-03 18:12] LABS: ACTIVATED PTT 29.6 SECONDS (25.2-36.5)
[2019-09-03 18:32] LABS: ALBUMIN 3.8 g/dl (3.4-5.0); ALK PHOS 82 U/L (45-117); ANION GAP 8 MMOL/L (8-16); BILIRUBIN,TOTAL 0.5 mg/dL (0.2-1); BLOOD UREA NITROGEN 12.7 mg/dL (7-18); CALCIUM 9.2 mg/dL (8.5-10.1); CHLORIDE 101 mmol/L (98-107); CO2 27 mmol/L (21-32); CREATININE 0.9 mg/dL (0.55-1.3); GLUCOSE,RANDOM 121 mg/dL (74-106); POTASSIUM 4.4 mmol/L (3.5-5.1); SGOT/AST 35 U/L (15-37); SGPT/ALT 21 U/L (13-61); SODIUM 136 mmol/L (136-145); TOT PROT 7.3 g/dl (6.4-8.2)
--- NOTE | 2019-09-04 11:22 | EKG ---
Test Reason : Blood Pressure : / mmHG Vent. Rate : 093 BPM Atrial Rate : 093 BPM P-R Int : 128 ms QRS Dur : 074 ms QT Int : 352 ms P-R-T Axes : 050 055 052 degrees QTc Int : 437 ms NORMAL SINUS RHYTHM LEFT ATRIAL ENLARGEMENT OTHERWISE NORMAL ECG Confirmed by MD DC, VILLA ([id number]) on 09/04/2019 11:22:04 AM Referred By: Confirmed By:VILLA IRWIN MD
== END 2019-09-03 19:13 | disposition home or self-care (01) ==
LOC: JER 15:27
PROC: 3E0337Z Introduction of Electrolytic and Water Balance Substance into Peripheral Vein, Percutaneous Approach (ICD-10-PCS; principal; 2019-09-03)
PROC: 3E0F7GC Introduction of Other Therapeutic Substance into Respiratory Tract, Via Natural or Artificial Opening (ICD-10-PCS; 2019-09-03)
DX: J09.X2 Influenza due to identified novel influenza A virus with other respiratory manifestations (principal); E78.5 Hyperlipidemia, unspecified; J45.909 Unspecified asthma, uncomplicated; Z85.3 Personal history of malignant neoplasm of breast; Z86.2 Personal history of diseases of the blood and blood-forming organs and certain disorders involving the immune mechanism; Z90.12 Acquired absence of left breast and nipple; Z90.710 Acquired absence of both cervix and uterus
CPT/HCPCS: 36415; 71046-TC-FY; 80053; 82550; 84484; 85025; 85610; 85730; 87804; 93005; 93010; 94640; 96360; 99285-25; J7030

== ENCOUNTER 2021-05-13 18:56 | Emergency (ER) | payer OTHER ==
[2021-05-13 19:11] VITALS: TEMP 98.7; BMI 27.1
[2021-05-13] MEDS ORDERED: MAG HYDROX/AL HYDROX/SIMETH -MYLANTA- ORAL SUSPENSION PO ONE (19:48)
[2021-05-13] MEDS ORDERED: FAMOTIDINE 20 MG/50 ML IVPB 20 MG/50 ML MG IVPB ONE ×2 (19:48→20:21)
[2021-05-13] MEDS ORDERED: ACETAMINOPHEN 1000 MG/100 ML VIAL IVPB ONE (19:48)
[2021-05-13] MEDS ORDERED: MAG HYDROX/AL HYDROX/SIMETH 30 ML UNIT-DOSE CUP ONE (20:21)
[2021-05-13] MEDS ORDERED: ACETAMINOPHEN INJECTION 100 ML IVPB ONE (20:21)
[2021-05-13 20:36] LABS: BASO % 1.1 % (0-2.0); EOS % 1.2 % (0-4.5); HEMATOCRIT 34.6 % (32.4-45.2); HEMOGLOBIN 11.6 GM/dL (10.7-15.3); LYMPH % 47.1 % (8-40); MCH 30.2 pg (25.7-33.7); MCHC 33.6 g/dl (32.0-36.0); MONO % 10.2 % (3.8-10.2); NEUT % 40.4 % (42.8-82.8); PLATELET COUNT 272 10^3/uL (134-434); RBC 3.84 M/mm3 (3.60-5.2); RDW 14.2 % (11.6-15.6); WHITE BLOOD COUNT 3.8 K/mm3 (4.0-10.0)
[2021-05-13 21:02] LABS: CHLORIDE 106 mmol/L (98-107); SODIUM 141 mmol/L (136-145)
[2021-05-13 21:04] LABS: CALCIUM 9.2 mg/dL (8.5-10.1)
[2021-05-13 21:05] LABS: ALBUMIN 3.9 g/dl (3.4-5.0); ANION GAP 6 MMOL/L (8-16); BLOOD UREA NITROGEN 15.7 mg/dL (7-18); CO2 29 mmol/L (21-32); GLUCOSE,RANDOM 94 mg/dL (74-106); LIPASE 50 U/L (73-393); MAGNESIUM 2.2 mg/dL (1.8-2.4)
[2021-05-13 21:08] LABS: CREATININE 1.1 mg/dL (0.55-1.3); SGOT/AST 29 U/L (15-37); SGPT/ALT 33 U/L (13-61)
[2021-05-13 21:09] LABS: BILIRUBIN,TOTAL 0.7 mg/dL (0.2-1); TOT PROT 7.9 g/dl (6.4-8.2)
[2021-05-13 21:10] LABS: ALK PHOS 85 U/L (45-117)
[2021-05-13 21:49] VITALS: BP 144/87; PULSE 66
== END 2021-05-13 23:39 | disposition home or self-care (01) ==
LOC: JER 18:56
PROC: 3E033NZ Introduction of Analgesics, Hypnotics, Sedatives into Peripheral Vein, Percutaneous Approach (ICD-10-PCS; principal; 2021-05-13)
PROC: 3E033GC Introduction of Other Therapeutic Substance into Peripheral Vein, Percutaneous Approach (ICD-10-PCS; 2021-05-13)
DX: R07.89 Other chest pain (principal)
CPT/HCPCS: 36415; 71046-TC-FY; 80053; 82550; 83690; 83735; 84484; 85025; 85379; 93005; 93010; 99285-25; C9803; J0131; U0003; U0005

== ENCOUNTER 2021-05-28 17:04 | Emergency (ER) | payer OTHER ==
[2021-05-28 17:30] VITALS: BP 124/76; PULSE 62; TEMP 98.2; BMI 26.9
[2021-05-28] MEDS ORDERED: NAPROXEN 500 MG TABLET PO ONE (19:40)
[2021-05-28] MEDS ORDERED: NAPROXEN 500 MG TABLET ONE (19:41)
== END 2021-05-28 19:45 | disposition home or self-care (01) ==
LOC: JER 17:04
DX: R51.9 Headache, unspecified (principal); R22.0 Localized swelling, mass and lump, head
CPT/HCPCS: 70450-TC; 99284-25

== ENCOUNTER 2021-06-14 06:34 | Emergency (ER) | payer OTHER ==
[2021-06-14 07:25] VITALS: BP 141/86; PULSE 61; TEMP 97.8; BMI 26.9
[2021-06-14] MEDS ORDERED: ACETAMINOPHEN/CAFFEINE/BUTALBITAL 1 TAB PO ONE (08:33)
[2021-06-14] MEDS ORDERED: ACETAMINOPHEN/CAFFEINE/BUTALBITAL 1 TAB ONE (08:34)
== END 2021-06-14 09:22 | disposition home or self-care (01) ==
LOC: JER 06:34
DX: G43.009 Migraine without aura, not intractable, without status migrainosus (principal)
CPT/HCPCS: 99283-25

== ENCOUNTER 2021-11-11 06:29 | Emergency (ER) | payer OTHER ==
[2021-11-11 06:42] VITALS: BMI 29.1
[2021-11-11] MEDS ORDERED: ASPIRIN 81 MG CHEWABLE TABLETS PO ONE (07:25)
[2021-11-11] MEDS ORDERED: ACETAMINOPHEN 1000 MG/100 ML BAG IVPB ONE (07:26)
[2021-11-11] MEDS ORDERED: ASPIRIN 81 MG CHEWABLE TABLETS ONE (07:32)
[2021-11-11] MEDS ORDERED: ACETAMINOPHEN INJECTION 100 ML IVPB ONE (07:32)
[2021-11-11 08:45] LABS: INR 0.91 (0.83-1.09); PROTHROMBIN TIME (PATIENT) 10.5 SEC (9.7-13.0)
[2021-11-11 08:46] LABS: BASO % 0.8 % (0-2.0); EOS % 1.8 % (0-4.5); HEMATOCRIT 33.2 % (32.4-45.2); HEMOGLOBIN 11.2 GM/dL (10.7-15.3); LYMPH % 34.9 % (8-40); MCH 30.5 pg (25.7-33.7); MCHC 33.8 g/dl (32.0-36.0); MEAN CELL VOLUME 90.3 fl (80-96); MEAN PLT VOLUME 9.4 fl (7.5-11.1); MONO % 8.5 % (3.8-10.2); PLATELET COUNT 221 10^3/uL (134-434); RBC 3.68 M/mm3 (3.60-5.2); RDW 14.4 % (11.6-15.6); WHITE BLOOD COUNT 4.2 K/mm3 (4.0-10.0)
[2021-11-11 08:55] LABS: CALCIUM 9.2 mg/dL (8.5-10.1)
[2021-11-11 08:56] LABS: ALBUMIN 3.5 g/dl (3.4-5.0); BLOOD UREA NITROGEN 11.7 mg/dL (7-18)
[2021-11-11 08:59] LABS: CREATININE 0.8 mg/dL (0.55-1.3)
[2021-11-11 09:01] LABS: BILIRUBIN,TOTAL 0.7 mg/dL (0.2-1); TOT PROT 6.6 g/dl (6.4-8.2)
[2021-11-11 11:37] VITALS: BP 111/58; PULSE 56; TEMP 98.2
== END 2021-11-11 12:06 | disposition home or self-care (01) ==
LOC: JER 06:29
PROC: 3E033GC Introduction of Other Therapeutic Substance into Peripheral Vein, Percutaneous Approach (ICD-10-PCS; principal; 2021-11-11)
DX: R00.2 Palpitations (principal); R07.9 Chest pain, unspecified
CPT/HCPCS: 36415; 71045-TC-FY; 80053; 84439; 84443; 84484; 85025; 85610; 85730; 93005; 93010; 99285-25

== ENCOUNTER 2021-11-30 11:02 | Emergency (ER) | payer OTHER ==
[2021-11-30 11:08] VITALS: BMI 25.0
[2021-11-30] MEDS ORDERED: SODIUM CHLORIDE 0.9% 500 ML INFUS.BAG IV ONE (11:49)
[2021-11-30] MEDS ORDERED: KETOROLAC TROMETHAMINE 30 MG/1 ML VIAL IVPUSH ONE (11:49)
[2021-11-30] MEDS ORDERED: KETOROLAC TROMETHAMINE 30 MG/1 ML VIAL IM ONE (11:53)
[2021-11-30 15:09] LABS: URINE APPEARANCE CLEAR; URINE BILIRUBIN NEGATIVE (NEGATIVE); URINE COLOR YELLOW; URINE GLUCOSE (UA) NEGATIVE (NEGATIVE); URINE KETONE TRACE (NEGATIVE); URINE LEUK ESTERASE NEGATIVE (NEGATIVE); URINE NITRITE NEGATIVE (NEGATIVE); URINE PROTEIN NEGATIVE (NEGATIVE)
[2021-11-30 15:28] VITALS: BP 123/66; PULSE 65; TEMP 98.3
== END 2021-11-30 19:55 | disposition home or self-care (01) ==
LOC: JER 11:02
PROC: 3E0233Z Introduction of Anti-inflammatory into Muscle, Percutaneous Approach (ICD-10-PCS; principal; 2021-11-30)
DX: R50.9 Fever, unspecified (principal); M79.10 Myalgia, unspecified site
CPT/HCPCS: 0241U-QW; 71046-TC-FY; 81003; 87086; 99284-25

== ENCOUNTER 2022-05-25 16:56 | Emergency (ER) | payer OTHER ==
[2022-05-25 18:40] VITALS: BP 99/65; PULSE 85; RESP 18; TEMP 97.9; BMI 25.9
[2022-05-25] MEDS ORDERED: ACETAMINOPHEN 500 MG TABLET (FP) PO ONE (19:54)
[2022-05-25] MEDS ORDERED: KETOROLAC TROMETHAMINE 30 MG/1 ML VIAL IM ONE (19:54)
[2022-05-25] MEDS ORDERED: KETOROLAC TROMETHAMINE 30 MG/1 ML VIAL ONE (19:56)
[2022-05-25] MEDS ORDERED: ACETAMINOPHEN 500 MG TABLET (FP) ONE (19:57)
== END 2022-05-26 01:13 | disposition home or self-care (01) ==
LOC: JER 16:56
PROC: 3E0233Z Introduction of Anti-inflammatory into Muscle, Percutaneous Approach (ICD-10-PCS; principal; 2022-05-25)
DX: M79.662 Pain in left lower leg (principal)
CPT/HCPCS: 93971-TC; 96372; 99284-25

== ENCOUNTER 2022-10-10 10:22 | Emergency (ER) | payer OTHER ==
[2022-10-10 10:44] VITALS: BP 119/75; PULSE 78; RESP 18; TEMP 98.5; BMI 25.9
[2022-10-10] MEDS ORDERED: ALBUTEROL SO4 2.5/IPRATROPIUM 0.5 INH SOL 3 ML VIAL.NEB. NEB ONE ×2 (11:06→11:07)
[2022-10-10] MEDS ORDERED: guaiFENesin 200 MG/10 ML 10 ML UNIT-DOSE CUPS PO ONE (11:08)
[2022-10-10] MEDS ORDERED: guaiFENesin/D-METHORPHAN HB 10 ML UNIT-DOSE CUPS ONE (11:24)
== END 2022-10-10 12:07 | disposition home or self-care (01) ==
LOC: JER 10:22 → JERFT 10:22
PROC: 3E0F7GC Introduction of Other Therapeutic Substance into Respiratory Tract, Via Natural or Artificial Opening (ICD-10-PCS; principal; 2022-10-10)
DX: J45.909 Unspecified asthma, uncomplicated (principal); Z20.822 Contact with and (suspected) exposure to COVID-19
CPT/HCPCS: 0241U-QW; 71046-TC-FY; 99284-25

== ENCOUNTER → 2022-11-02 | Day surgery (SDC) | payer OTHER ==
[2022-11-01 09:00] VITALS: BMI 25.9
[~2022-11-02] MED LIST: BUPIVACAINE HCL/PF 0.5% (5MG/ML) 10 ML VIAL IJ ONE; BUPIVACAINE HCL/PF 0.5% (5MG/ML) 10 ML VIAL ONE; IBUPROFEN 400 MG TABLET (FP) PO ONE; LACTATED RINGERS SOLUTION 1,000 ML IV SCH; LIDOCAINE 1%/EPI 1:100000 (20 ML MULTI DOSE VIAL) IJ ONE; ONDANSETRON 4 MG/2 ML VIAL IVPUSH PRN; oxyCODONE HCL 5 MG TABLET PO PRN
[2022-11-02 14:13] VITALS: PULSE 71; RESP 20
[2022-11-02 15:32] VITALS: BP 121/74; TEMP 97.5
== END | disposition home or self-care (01) ==
LOC: JASU-SURG 04:11
PROVIDERS: ATTEND Orthopaedic Surgery
PROC: 0SBD4ZZ Excision of Left Knee Joint, Percutaneous Endoscopic Approach (ICD-10-PCS; principal; 2022-11-02 11:00)
DX: S83.232A Complex tear of medial meniscus, current injury, left knee, initial encounter (principal); X58.XXXA Exposure to other specified factors, initial encounter; Y93.9 Activity, unspecified; Y92.9 Unspecified place or not applicable; Y99.9 Unspecified external cause status
CPT/HCPCS: 94760